=== PATIENT | female | born 1975 | race Caucasian/White ===

== ENCOUNTER 2021-03-22 14:21 | Outpatient (REF) | payer BC, SELFPAY ==
[2021-03-22 15:15] LABS: Binax Internal Control QC Valid; Binax Lot number: 9864; Binax Now Covid-19 Ag Negative (Negative)
== END 2021-03-22 14:22 | disposition home or self-care (01) ==
LOC: HO.LAB 14:21
PROVIDERS: Visit Provider Internal Medicine
DX: Z20.822 Contact with and (suspected) exposure to COVID-19 (principal)
CPT/HCPCS: 36415; C9803

== ENCOUNTER 2023-03-10 13:21 | Emergency (ER) | payer OTHER, SELFPAY ==
--- NOTE | ~2023-03-10 | US_ITS ---
EXAMINATION: US ABDOMEN LIMITED CLINICAL INFORMATION: Right upper quadrant abdominal pain. Nausea, heartburn. COMPARISON: None available. TECHNIQUE: Real-time imaging of the right upper quadrant abdominal viscera. FINDINGS: PANCREAS: The visualized pancreatic head and body are unremarkable. The tail is obscured by overlying bowel gas. LIVER: The liver is normal in size. The liver contour is normal. Parenchymal echogenicity is normal. Multiple parenchymal hyperechoic foci measuring up to 0.6 cm which may represent hemangioma. Small parenchymal calcifications. There is no intrahepatic biliary duct dilatation seen. GALLBLADDER: Cholelithiasis. No significant gallbladder wall thickening or pericholecystic free fluid to suggest acute cholecystitis. COMMON BILE DUCT: Normal in caliber measuring 0.3 cm in diameter. RIGHT KIDNEY: No hydronephrosis. No renal calculi or focal parenchymal lesions. The kidney measures 9.7 cm in maximum dimension. FREE FLUID: None. US/US abdomen limited IMPRESSION: Cholelithiasis without gallbladder wall thickening or pericholecystic free fluid to suggest acute cholecystitis.
--- NOTE | 2023-03-10 13:24 | ECG_ITS ---
Test Reason : CP Blood Pressure : / mmHG Vent. Rate : 096 BPM Atrial Rate : 096 BPM P-R Int : 140 ms QRS Dur : 066 ms QT Int : 332 ms P-R-T Axes : 048 033 052 degrees QTc Int : 419 ms Normal sinus rhythm Low voltage QRS Nonspecific T wave abnormality Abnormal ECG No previous ECGs available Referred By: Jeet Vazquez Electronically Signed By:DANYEL GELLER MD
--- OUTSIDE RECORDS SUMMARY | 2023-03-10 13:40 | XMS_ITS | Continuity of Care Document ---
Author Name Unknown Organization [facility] [place] [address] [facility], [address] [place] [address]- Care Team Providers Care Production Estimator Name Role Phone Pillo LI, Patricia Primary Care Physician [phone] Encounter 10/09/20 - 10/16/20 [facility] [address], [facility] [address] [place] [address]- Attending Physician: Patricia Ferro NP Admitting Physician: Ace LI, Gaby Mobley Referring Physician: Patricia Ferro NP Allergies, Adverse Reactions, Alerts Substance Reaction Severity Status NKA Active Immunizations Given and Recorded Vaccine Date Status Refusal Reason SARS-CoV-2 (COVID-19) mRNA-1273 vaccine 05/24/20 R ecorded SARS-CoV-2 (COVID-19) mRNA-1273 vaccine 05/23/20 R ecorded SARS-CoV-2 (COVID-19) mRNA-1273 vaccine 04/26/20 R ecorded SARS-CoV-2 (COVID-19) mRNA-1273 vaccine 04/25/20 R ecorded influenza virus vaccine, inactivated 02/07/19 Give n
--- OUTSIDE RECORDS SUMMARY | 2023-03-10 13:40 | XMS_ITS | Continuity of Care Document ---
Author Name Unknown Organization [facility] Address [address] [place] [address]- Care Team Providers Care Java Security Engineer Name Role Phone Salvador Quiñones Primary Care Physi jeremy [place] [facility] [place] 12/04/22 - 01/31/23 [facility] Adult [address] [place] [address]- Attending Physician: Salvador Quiñones Allergies, Adverse Reactions, Alerts No Known Allergies Immunizations Given and Recorded Vaccine Date Status Refusal Reason SARS-CoV-2 (COVID-19) mRNA-1273 vaccine 05/24/20 R ecorded SARS-CoV-2 (COVID-19) mRNA-1273 vaccine 05/23/20 R ecorded SARS-CoV-2 (COVID-19) mRNA-1273 vaccine 04/26/20 R ecorded SARS-CoV-2 (COVID-19) mRNA-1273 vaccine 04/25/20 R ecorded influenza virus vaccine, inactivated 02/07/19 Give n Patient Care team information Care Team Personnel Name: Salvador Quiñones Position: S PCO Associate Professional Member Role: PCP Address: Address: [address] [place] [address] [place] [address]- Care Team Related Persons Name: CLAUDETTE TEJADA
--- OUTSIDE RECORDS SUMMARY | 2023-03-10 13:40 | XMS_ITS | Continuity of Care Document ---
Author Name Unknown Organization [facility] Peter Garrison Sanjay Address [address] [place] [address]- Care Team Providers Care Party Plan Sales Unit Advisor Name Role Phone Pillo LI, Patricia Primary Care Physician Encounter [facility] [place] Date(s): 08/24/20 - 08/31/20 [facility] Peter Garrison Adult [address] [place] [address]- Encounter Diagnosis Fatigue(Discharge Diagnosis) - 08/24/20 Attending Physician: Not on Staff, Attending MD Allergies, Adverse Reactions, Alerts Substance Reaction Severity Status NKA Active Immunizations Given and Recorded Vaccine Date Status Refusal Reason SARS-CoV-2 (COVID-19) mRNA-1273 vaccine 05/24/20 R ecorded SARS-CoV-2 (COVID-19) mRNA-1273 vaccine 05/23/20 R ecorded SARS-CoV-2 (COVID-19) mRNA-1273 vaccine 04/26/20 R ecorded SARS-CoV-2 (COVID-19) mRNA-1273 vaccine 04/25/20 R ecorded influenza virus vaccine, inactivated 02/07/19 Give n Problem List Diagnosis Diagnosis Type Effective Dates Health Status Clini tosha Service Informant Fatigue Discharge Diagnosis 08/24/20 Vital Signs Most recent to oldest [Reference Range]: 1 2 Height 151 cm (08/24/20 7:06 AM) 151 cm (08/24/20 6:45 AM) Weight 75 kg (08/24/20 7:06 AM) Body Mass Index [18.5-24.99] 32.89 *>HHI* (08/24/20 7:06 AM)
--- OUTSIDE RECORDS SUMMARY | 2023-03-10 13:40 | XMS_ITS | Continuity of Care Document ---
Author Name Unknown Organization [facility] Peter Garrison Sanjay Address [address] [place] [address]- Care Team Providers Care Painter Airbrush Name Role Phone Pillo LI, Patricia Primary Care Physician [phone] Encounter [facility] Date(s): 10/01/20 - 10/31/20 [facility] Peter Garrison Adult [address] [place] [address]- Allergies, Adverse Reactions, Alerts Substance Reaction Severity Status NKA Active Immunizations Given and Recorded Vaccine Date Status Refusal Reason SARS-CoV-2 (COVID-19) mRNA-1273 vaccine 05/24/20 R ecorded SARS-CoV-2 (COVID-19) mRNA-1273 vaccine 05/23/20 R ecorded SARS-CoV-2 (COVID-19) mRNA-1273 vaccine 04/26/20 R ecorded SARS-CoV-2 (COVID-19) mRNA-1273 vaccine 04/25/20 R ecorded influenza virus vaccine, inactivated 02/07/19 Give n
--- OUTSIDE RECORDS SUMMARY | 2023-03-10 13:40 | XMS_ITS | Continuity of Care Document ---
Author Name Unknown Organization [facility] [place] [place] Address [address] [facility], [address] [place] [address]- Care Team Providers Care Tankage Grinder Name Role Phone Pillo LI, Patricia Primary Care Physician Encounter 09/28/20 - 10/05/20 [facility] [place] [place] [address] [facility], [address] [place] [address]- Attending Physician: Ace LI, Gaby Mobley Admitting Physician: Ace LI, Gaby Mobley Referring Physician: Ace LI, Gaby Mobley Allergies, Adverse Reactions, Alerts Substance Reaction Severity Status NKA Active Immunizations Given and Recorded Vaccine Date Status Refusal Reason SARS-CoV-2 (COVID-19) mRNA-1273 vaccine 05/24/20 R ecorded SARS-CoV-2 (COVID-19) mRNA-1273 vaccine 05/23/20 R ecorded SARS-CoV-2 (COVID-19) mRNA-1273 vaccine 04/26/20 R ecorded SARS-CoV-2 (COVID-19) mRNA-1273 vaccine 04/25/20 R ecorded influenza virus vaccine, inactivated 02/07/19 Give n
--- OUTSIDE RECORDS SUMMARY | 2023-03-10 13:40 | XMS_ITS | Continuity of Care Document ---
Author Name Unknown Organization [facility] Peter Garrison Sanjay Address [address] [place] [address]- Care Team Providers Care Marine Steward Name Role Phone Pillo LI, Patricia Primary Care Physician Encounter [facility] Date(s): 10/05/20 - 11/04/20 [facility] Peter Garrison Adult [address] [place] [address]- Allergies, Adverse Reactions, Alerts Substance Reaction Severity Status NKA Active Immunizations Given and Recorded Vaccine Date Status Refusal Reason SARS-CoV-2 (COVID-19) mRNA-1273 vaccine 05/24/20 R ecorded SARS-CoV-2 (COVID-19) mRNA-1273 vaccine 05/23/20 R ecorded SARS-CoV-2 (COVID-19) mRNA-1273 vaccine 04/26/20 R ecorded SARS-CoV-2 (COVID-19) mRNA-1273 vaccine 04/25/20 R ecorded influenza virus vaccine, inactivated 02/07/19 Give n
--- OUTSIDE RECORDS SUMMARY | 2023-03-10 13:40 | XMS_ITS | Continuity of Care Document ---
Author Name Unknown Organization [facility] Peter Garrison Sanjay lt Address [address] [place] [address]- Care Team Providers Care Gut Dropper Name Role Phone Patricia Ferro NP Primary Care Physician [place] [facility] [place](s): 10/08/20 - 12/16/20 [facility] Peter Garrison Adult [address] [place] [address]- Attending Physician: Patricia Ferro NP Allergies, Adverse Reactions, [...]
--- OUTSIDE RECORDS SUMMARY | 2023-03-10 13:40 | XMS_ITS | Continuity of Care Document ---
Author Name Unknown Organization [facility] Peter Mehta Sanjay lt Address [address] [place] [address]- Care Team Providers Care Larriman Name Role Phone Patricia Ferro NP Primary Care Physician En[place] [facility] [place](s): 11/16/20 - 12/16/20 [facility] Adult [address] [place] [address]- Attending Physician: Ronda Brooks Admitting Physician: AdmtrRonda Referring Physician: Admtr, Ar8 Allergies, Adverse Reactions, Alerts Substance Reaction Severity Status NKA Active Immunizations Given and Recorded Vaccine Date Status Refusal Reason SARS-CoV-2 (COVID-19) mRNA-1273 vaccine 05/24/20 R ecorded SARS-CoV-2 (COVID-19) mRNA-1273 vaccine 05/23/20 R ecorded SARS-CoV-2 (COVID-19) mRNA-1273 vaccine 04/26/20 R ecorded SARS-CoV-2 (COVID-19) mRNA-1273 vaccine 04/25/20 R ecorded influenza virus vaccine, inactivated 02/07/19 Give n
--- OUTSIDE RECORDS SUMMARY | 2023-03-10 13:40 | XMS_ITS | Continuity of Care Document ---
Author Name Unknown Organization [facility] Address [address] [place] [address]- Care Team Providers Care Master Printer Name Role Phone Pillo LI, Patricia Primary Care Physician [phone] Encounter [facility] Date(s): 12/03/20 - 01/13/[address] [address]- Attending Physician: Patricia Ferro NP Admitting Physician: Patricia Ferro NP Referring Physician: Patricia Ferro NP Allergies, Adverse [...]
--- OUTSIDE RECORDS SUMMARY | 2023-03-10 13:40 | XMS_ITS | Continuity of Care Document ---
Author Name Unknown Organization [facility] Peter Garrison Sanjay Address [address] [place] [address]- Care Team Providers Care Architectural Design Professor Name Role Phone Pillo LI, Patricia Primary Care Physician [phone] Encounter [facility] Date(s): 08/24/20 - 09/23/20 [facility] Peter Garrison Adult [address] [place] [address]- Attending Physician: Admtr, Ar8 Admitting Physician: Admtr, Ar8 Referring Physician: Admtr, Ar8 Allergies, Adverse Reactions, [...]
--- OUTSIDE RECORDS SUMMARY | 2023-03-10 13:40 | XMS_ITS | Continuity of Care Document ---
Author Name Unknown Organization [facility] Address [address] [place] [address]- Care Team Providers Care Pedicab Driver Name Role Phone Pillo LI, Patricia Primary Care Physician Encounter [facility] Date(s): 10/09/20 - 11/08/20 [facility] [address] [place] [address] Allergies, Adverse Reactions, Alerts Substance Reaction Severity Status NKA Active Immunizations Given and Recorded Vaccine Date Status Refusal Reason SARS-CoV-2 (COVID-19) mRNA-1273 vaccine 05/24/20 R ecorded SARS-CoV-2 (COVID-19) mRNA-1273 vaccine 05/23/20 R ecorded SARS-CoV-2 (COVID-19) mRNA-1273 vaccine 04/26/20 R ecorded SARS-CoV-2 (COVID-19) mRNA-1273 vaccine 04/25/20 R ecorded influenza virus vaccine, inactivated 02/07/19 Give n
--- OUTSIDE RECORDS SUMMARY | 2023-03-10 13:40 | XMS_ITS | Continuity of Care Document ---
Author Name Unknown Organization [facility] Address [address] [place] [address]- Care Team Providers Care Lead Front Desk Agent Name Role Phone Salvador Quiñones Primary Care Physi jeremy Encounter [facility] Date(s): 01/01/23 - 01/31/23 [facility] Adult [address] [place] [address] Attending Physician: AdmSelwyn [email or web address] Admitting Physician: [id number] Referring Physician: Admtr, Ar8 Allergies, Adverse Reactions, Alerts No Known Allergies [...] Associate Professional Member Role: PCP Address: Address: [address] [place] [address] [place] [address]- Care Team Related Persons Name: CLAUDETTE TEJADA
[2023-03-10 13:53] LABS: MANUAL DIFF FLAG NO
[2023-03-10 13:57] LABS: Basophils Percent Auto 0.5 % (0-2); Eosinophils Absolute Auto 0.1 X10*3/uL (0.0-0.4); Eosinophils Percent Auto 0.7 % (0-4); Hematocrit 37.7 % (37.0-47.0); Hemoglobin 12.1 g/dl (12.0-16.0); Imm Gran Abs Auto 0.03 X10*3/uL (0.00-0.03); Imm Gran Pct Auto 0.4 % (0.0-0.4); Lymphocytes Absolute Auto 1.1 X10*3/uL (1.2-4.9); Lymphocytes Percent Auto 15.1 % (20-40); Mean Corpuscular HGB Conc 32.1 g/dl (31.0-35.0); Mean Corpuscular Hemoglobin 26.8 pg (27.0-33.0); Mean Corpuscular Volume 83.4 fL (80.0-98.0); Mean Platelet Volume 9.8 fL (9.4-12.3); Monocytes Absolute Auto 0.4 X10*3/uL (0.1-1.2); Monocytes Percent Auto 5.3 % (2-11); Neutrophils Absolute Auto 5.7 x10*3/uL (2.0-8.3); Platelet Count 344 X10*3/uL (160-400); Red Blood Count 4.52 X10*6/uL (4.20-5.50); Red Cell Distribution Width 14.6 % (11.0-16.0); White Blood Count 7.3 X10*3/uL (4.8-10.8)
[2023-03-10 13:58] VITALS: BP 142/92; PULSE 92; RESP 17; TEMP 37.1; O2SAT 98; BMI 31.2
[2023-03-10 14:02] LABS: Prothrombin Time 11.7 SEC (11.1-13.3)
[2023-03-10 14:04] LABS: Partial Thromboplastin Time 32.7 SEC (26.0-36.4)
--- NOTE | 2023-03-10 14:04 | ED_ITS ---
HPI - General Adult General Chief complaint: General Medical Stated complaint: chest pain Time Seen by Provider: 03/10/23 20:13 Source: patient, RN notes reviewed and old records reviewed Mode of arrival: ambulatory Limitations: no limitations History of Present Illness HPI narrative: 47-year-old female presents for evaluation of left-sided chest pain. She reports the pain started around 8:00 a.m. The pain has been coming and going Time of my evaluation she states the pain seems to be lessening intensity She has a history of heartburn and takes Prilosec She reports occasional nausea No fevers, chills or cardiac history No other complaints or concerns at this time Currently the patient has no pain Related Data Allergies Allergy/AdvReac Type Severity Reaction Status Date / Time Unable to Assess Allergy Unverified 03/10/23 13:24 Review of Systems 2 Constitutional: Constitutional: Denies chills and Denies fever(s) Eyes: Eyes: Denies blurry vision Cardiovascular: Cardiovascular: Reports chest pain and Denies dyspnea Respiratory: Respiratory: Denies cough and Denies dyspnea Gastrointestinal: Gastrointestinal: Reports abdominal pain, Reports nausea and Denies vomiting Musculoskeletal: Musculoskeletal: Denies back pain PMFSH Social History Social History Smoked in Last 30 Days: No Use of substances other than those prescribed or required for medical reasons: No Advance Directives: No Advance Directives Information Provided: No Patient : No Physical Exam ED Vital Signs: Vital Signs - 24 hr 03/10/23 13:58 03/10/23 20:06 Temperature 98.7 F 98.9 F Pulse Rate 92 79 Respiratory Rate 17 14 Blood Pressure 142/92 H 144/91 H Pulse Oximetry 98 99 Oxygen Delivery Method Room Air Room Air BMI result Body Mass Index 31.2 Const General: healthy appearing, comfortable, no acute distress, alert and awake Nutritional Appearance: well nourished Orientation/consciousness: patient oriented x3 HENMT Head: Yes normocephalic and Yes atraumatic Eyes Eyelids: Yes eyelids normal Conjunctivae: conjunctivae normal Sclerae: sclerae normal Corneas: corneas normal Pupils: Equal, round and reactive pupils present EOM: EOMs intact bilaterally Neck Neck: Yes full ROM Resp Effort & Inspection: normal respiratory effort, able to speak in complete sentences and not labored Cardio Rate: regular rate Rhythm: regular rhythm GI Inspection: No distended Palpation (GI): Soft to palpation, not firm, nontender, no guarding and not rigid Skin General skin exam: elasticity normal Neuro General: patient oriented x3 Cranial nerves: Yes Equal, round and reactive pupils present and Yes Bilaterally intact EOM present Cognition (Neuro): normal cognition Extrem Other: Moving all extremities well without any obvious deformities Course Course Course Narrative: 47-year-old female presents for evaluation of chest pain. Her pain is intermittent. She has a history of bad heartburn. She also complains of nausea. Plan for labs, EKG, ultrasound of the right upper quadrant. Medical Decision Making Medical Decision Making [facility] Narrative: 47-year-old female presents for evaluation of chest pain/epigastric pain. Her pain is sometimes associated with nausea. Plan for labs, EKG, ultrasound of the right upper quadrant. She has no risk factors for ACS. Her pain may be related to stomach ulcer/peptic ulcer disease related to her chronic indigestion Differential Diagnosis Differential Diagnoses: The differential diagnosis associated with the presentation includes Chest pain Cholelithiasis Acute cholecystitis Costochondritis Peptic ulcer disease Admission/Observation Consideration of admission/observation: Escalation of care including admission/observation considered 47-year-old female presents for evaluation of chest pain. She ruled out for ACS as her troponin was negative and she presented over 4 hours after the symptom onset. Her EKG is nonischemic Lab Data [facility] Lab Attestation statement: I reviewed the patient's lab results. No leukocytosis or anemia. Normal platelet count. No electrolyte abnormalities, troponin undetectable 03/10/23 13:48 03/10/23 13:48 Labs: Lab Results 03/10/23 Range/Units 13:48 WBC 7.3 (4.8-10.8) X10*3/uL RBC 4.52 (4.20-5.50) X10*6/uL Hgb 12.1 (12.0-16.0) g/dl Hct 37.7 (37.0-47.0) % MCV 83.4 (80.0-98.0) fL MCH 26.8 L (27.0-33.0) pg MCHC 32.1 (31.0-35.0) g/dl RDW 14.6 (11.0-16.0) % Plt Count 344 (160-400) X10*3/uL MPV 9.8 (9.4-12.3) fL Immature Gran % (Auto) 0.4 (0.0-0.4) % Neut % (Auto) 78.0 H (45-73) % Lymph % (Auto) 15.1 L (20-40) % [place] % (Auto) 5.3 (2-11) % Eos % (Auto) 0.7 (0-4) % Baso % (Auto) 0.5 (0-2) % Lymph # (Auto) 1.1 L (1.2-4.9) X10*3/uL [place] # (Auto) 0.4 (0.1-1.2) X10*3/uL Eos # (Auto) 0.1 (0.0-0.4) X10*3/uL Baso # (Auto) 0.0 (0.0-0.2) X10*3/uL Abs Immat Gran (auto) 0.03 (0.00-0.03) X10*3/uL Absolute Neuts (auto) 5.7 (2.0-8.3) x10*3/uL Absolute Nucleated RBC 0.000 (0.0-0.012) X10*3/uL Nucleated RBC % (auto) 0.0 (0.0-0.2) /100WBC PT 11.7 (11.1-13.3) SEC INR 1.0 (0.9-1.1) APTT 32.7 (26.0-36.4) SEC Sodium 141 (135-145) mmol/L Potassium 4.1 (3.3-5.1) mmol/L Chloride 108 (96-108) mmol/L Carbon Dioxide 22 (22-29) mmol/L Anion Gap 15 (12-20) BUN 11 (9-16) mg/dL Creatinine 0.85 (0.5-1.4) mg/dL Estim Creat Clear Calc 70.4 Estimated GFR > 60 Random Glucose 116 H (60-115) mg/dL Calcium 9.9 (8.4-10.2) mg/dL Total Bilirubin 0.2 (0.0-1.0) mg/dL AST 17 (5-31) U/L ALT 11 (0-31) U/L Alkaline Phosphatase 28 L (39-117) U/L Troponin I High Sens < 2.7 (<3.5-17.0) ng/L Total Protein 7.8 (6.5-8.0) g/dL Albumin 4.6 (3.5-5.0) g/dL Lipase 35 (8-78) U/L Independent Interpretation I performed an independent interpretation of an: EKG (Normal sinus rhythm with rate of 96 beats per minute. No ST segment elevations or depressions.) Discharge Plan Discharge Clinical Impression: Cholelithiasis, Chest pain Patient Disposition: Home, Self-Care Instructions: Chest Pain (ED), Gallstones (ED) Additional Instructions: Your workup in the emergency room today was reassuring. This includes your blood work, EKG. Your ultrasound did show gallstones but no evidence of associated infection or inflammation Follow this up with your primary doctor Return for new or worsening symptoms Interventions: ED Discharge Assessment Last Done: 03/10/23 20:23 Discharge Date/Time: 03/10/23 20:23
[2023-03-10 14:09] LABS: Alanine Aminotransferase 11 U/L (0-31); Albumin Level 4.6 g/dL (3.5-5.0); Alkaline Phosphatase 28 U/L (39-117); Anion Gap 15 (12-20); Aspartate Amino Transferase 17 U/L (5-31); Bilirubin Total 0.2 mg/dL (0.0-1.0); Blood Urea Nitrogen 11 mg/dL (9-16); Calcium 9.9 mg/dL (8.4-10.2); Carbon Dioxide 22 mmol/L (22-29); Chloride 108 mmol/L (96-108); Creatinine Clr Calc Pharmacy 70.4; Estimated Glomerular Filt Rate > 60; Glucose Random 116 mg/dL (60-115); Lipase 35 U/L (8-78); Potassium 4.1 mmol/L (3.3-5.1); Sodium 141 mmol/L (135-145); Total Protein 7.8 g/dL (6.5-8.0)
[2023-03-10 14:19] LABS: Troponin-I High Sensitivity < 2.7 ng/L (<3.5-17.0)
[2023-03-10 20:06] VITALS: BP 144/91; PULSE 79; RESP 14; TEMP 37.2; O2SAT 99
== END 2023-03-10 20:23 | disposition home or self-care (01) ==
PROVIDERS: Physician Assistant; Emergency Provider Internal Medicine
DX: K80.20 Calculus of gallbladder without cholecystitis without obstruction (principal); R07.89 Other chest pain; Z79.899 Other long term (current) drug therapy
CPT/HCPCS: 36415; 76705; 80053; 83690; 84484; 85025; 85610; 85730; 93005; 99284

== ENCOUNTER → 2023-03-10 13:24 | Outpatient (BNV) | payer OTHER, SELFPAY | PROVIDERS: Visit Provider Internal Medicine Cardiovascular Disease | DX: R07.9 Chest pain, unspecified (principal) | CPT/HCPCS: 93010 ==